=== PATIENT | female | born 2000 | race Caucasian/White ===

== ENCOUNTER 2024-08-29 23:45 | Emergency (ER) | payer BC ==
--- NOTE | 2024-08-30 00:14 | ERPHSYRPT ---
- History of Present Illness Source: patient Exam Limitations: no limitations Physician History: Patient's had some scant urine in her blood. She is also had frequency urgency and dysuria. She has not had a fever chills nausea vomit other systemic symptoms. She has not had any urinary tract infections in the past. Nothing makes his symptoms better or worse. The symptoms have been going on for a few hours now. Allergies/Adverse Reactions: No Known Drug Allergies Allergy (Verified 08/30/24 00:14) Home Medications: Metformin HCl 500 mg [Glucophage 500 MG] 1 tab PO QHS 08/30/24 [History] Metformin HCl 500 mg [Glucophage 500 MG] 2 tab PO QAM 08/30/24 [History] - Review of Systems Constitutional: No Symptoms Eyes: No Symptoms All Other Systems: Reviewed and Negative - Nursing Vital Signs Nursing Vital Signs: Initial Vital Signs Temperature 99.6 F 08/29/24 23:45 Pulse Rate 91 H 08/29/24 23:45 Respiratory Rate 18 08/29/24 23:45 Blood Pressure 127/81 08/29/24 23:45 O2 Sat by Pulse Oximetry 98 08/29/24 23:45 Pain Scale Pain Intensity 0 - Physical Exam General Appearance: no apparent distress Eye Exam: PERRL/EOMI Cardiovascular Exam: regular rate/rhythm, normal heart sounds Gastrointestinal/Abdomen Exam: soft, normal bowel sounds, No tenderness Pelvic Exam: not done Rectal Exam: deferred Back Exam: normal inspection Skin Exam: normal color - Course Nursing assessment & vital signs reviewed: Yes Ordered Tests: Active Orders 24 hr Category Date Time Status CULTURE,URINE Stat Lab 08/30/24 00:18 Received HCG QUALITATIVE, URINE Stat Lab 08/30/24 00:18 Completed UA W/RFX UR CULTURE Stat Lab 08/30/24 00:18 Completed Medication Summary Generic Name Dose Route Start Last Admin Trade Name Freq PRN Reason Stop Dose Admin Phenazopyridine HCl 200 mg 08/30/24 10:00 08/30/24 00:25 Phenazopyridine Hcl 200 Mg Tablet PO 09/29/24 09:59 200 mg TID TOÑO Administration Discontinued Medications Generic Name Dose Route Start Last Admin Trade Name Freq PRN Reason Stop Dose Admin Trimethoprim/Sulfamethoxazole 1 tab 08/30/24 00:13 03/23/25 00:25 Smz/Tmp Ds Tablet 1 Tablet PO 08/30/24 00:14 1 tab STAT STA Administration Trimethoprim/Sulfamethoxazole Confirm 08/30/24 00:24 Smz/Tmp Ds Tablet 1 Tablet Administered 08/30/24 00:25 Dose 1 tab PO .STK-MED ONE Lab/Rad Data: Laboratory Results 08/30/24 08/30/24 Range/Units 00:18 00:18 Urine Color Yellow (Yellow) Urine Appearance Cloudy A (Clear) Urine pH 6.5 (4.6-8.0) Ur Specific [place] 1.020 (1.005-1.030) Urine Protein 100 A (Negative) Urine Glucose (UA) Negative (Negative) mg/dL Urine Ketones Negative (Negative) Urine Blood Large A (Negative) Urine Nitrite Negative (Negative) Urine Bilirubin Negative (Negative) Urine Urobilinogen 1.0 A (0.2) mg/dL Ur Leukocyte Esterase Large A (Negative) U Hyaline Cast (Auto) NONE SEEN (0-2) /LPF Urine Microscopic RBC >100 A (0-5) /HPF Urine Microscopic WBC >100 A (0-5) /HPF Ur Epithelial Cells None Seen (None Seen) /HPF Urine Bacteria None Seen (None Seen) /HPF Urine Culture Reflexed YES (NO) Urine HCG, Qual NEGATIVE (NEGATIVE) - Progress Progress: unchanged Air Movement: good Medical Desision Making - Independent Historian Additional History obtained from: Spouse - Diagnostic Testing Diagnostic test were ordered, analyzed, and reviewed by me: Yes - Risk of complications Minimal Risk: Minimal risk of morbidity - Departure Departure Disposition: Home Clinical Impression: Urinary tract infection Condition: Stable Critical Care Time: No Referrals: EDWARDO CHO DO [Primary Care Provider] - Follow up/PCP as directed Instructions: Urinary tract infections in adults Prescriptions: Sulfamethoxazole/Trimethoprim [Bactrim Ds Tablet] 1 each PO BID #10 tablet Phenazopyridine HCl 200 mg [Pyridium 200 mg] 200 mg PO TID #10 tablet
[2024-08-30] MEDS ORDERED: BACTRIM DS TABLET PO ONE (00:24)
[2024-08-30] MEDS ORDERED: PYRIDIUM 200 MG ONE (00:24)
[2024-08-30] MEDS: BACTRIM DS TABLET PO STA (00:25)
[2024-08-30] MEDS: PYRIDIUM 200 MG PO SCH (00:25)
[2024-08-30 00:26] LABS: HCG URINE TEST NEGATIVE (NEGATIVE)
[2024-08-30 00:27] VITALS: RESP 18; TEMP 99.6; O2SAT 98
[2024-08-30 00:28] LABS: Appearance Cloudy (Clear); Bacteria None Seen /HPF (None Seen); Bilirubin Negative (Negative); Blood Large (Negative); Epithelial Cells None Seen /HPF (None Seen); Glucose, Urine Negative (Negative); Hyaline Casts NONE SEEN /LPF (0-2); Ketones Negative (Negative); Leukocyte Esterase Large (Negative); Nitrite Negative (Negative); Ph 6.5 (4.6-8.0); Protein,Urine Dip 100 (Negative); RBC >100 /HPF (0-5); WBC >100 /HPF (0-5)
[2024-08-30 00:48] VITALS: BP 117/69; PULSE 86
== END 2024-08-30 01:10 | disposition home or self-care (01) ==
LOC: ED 23:45
DX: N39.0 Urinary tract infection, site not specified (principal); R30.0 Dysuria; R35.0 Frequency of micturition; Z79.84 Long term (current) use of oral hypoglycemic drugs; Z79.899 Other long term (current) drug therapy
CPT/HCPCS: 81001; 81025; 87077; 87086; 87186; 99283; A9270-GY